=== PATIENT | male | born 1995 | race African-American/Black ===

== ENCOUNTER 2022-11-27 11:58 | Emergency (ER) | payer BC ==
[2022-11-27 12:07] VITALS: BP 138/79; PULSE 100; RESP 18; TEMP 98.1; BMI 21.2
== END 2022-11-27 15:08 | disposition home or self-care (01) ==
LOC: JERFT 11:58
DX: S50.812A Abrasion of left forearm, initial encounter (principal); X99.8XXA Assault by other sharp object, initial encounter
CPT/HCPCS: 99282-25